=== PATIENT | male | born 1985 | race Two or more races ===

== ENCOUNTER → 2025-09-15 | Outpatient (CLI) | payer MEDICAID, SELFPAY ==
--- NOTE | 2025-09-15 09:00 | XR_ITS ---
EXAMINATION: Ultrasound abdomen complete TECHNIQUE: Grayscale sonographic images abdomen Date and time: September 15, 2025 0906 hours INDICATIONS: Right upper abdominal pain beginning 6 months ago. FINDINGS: Normal gallbladder. Normal common bile duct 0.3 cm Pancreas obscured by bowel gas Aorta is not enlarged. Liver 16.8 cm fatty infiltration no focal liver lesions. Normal hepatopetal portal venous flow Patent IVC Right kidney 11.6 cm and the cortex 2.0 cm Left kidney 12.7 cm renal cortex 2.0 cm Mid pole 22 mm left renal cyst Moderate renal scar formation Spleen 13.2 cm IMPRESSION: Normal gallbladder Hepatosplenomegaly Moderate bilateral renal parenchymal scar formation
== END | disposition home or self-care (01) ==
PROVIDERS: PCP Physician Assistant; Referring Provider Physician Assistant; Visit Provider Physician Assistant
DX: N28.89 Other specified disorders of kidney and ureter (principal); R16.2 Hepatomegaly with splenomegaly, not elsewhere classified
CPT/HCPCS: 76700